=== PATIENT | female | born 1940 | race Hispanic/Latino ===

== ENCOUNTER 2018-03-16 15:27 | Emergency (ER) | payer MEDICARE ==
[2018-03-16 15:36] VITALS: RESP 16; TEMP 98.1
[2018-03-16] MEDS ORDERED: Lidocaine 5% Patch TD ONE (16:19)
[2018-03-16] MEDS: Lidocaine 5% Patch TD STA (16:26)
--- NOTE | 2018-03-16 16:56 | CT ---
Date of service: 03/16/2018 PROCEDURE: CT Lumbar Spine without contrast HISTORY: back pain, s/p fall, s/p kyphoplasty COMPARISON: None available. TECHNIQUE: Axial computed tomography images were obtained of the lumbar spine without the use of intravenous contrast. Coronal and sagittal reformatted images were created and reviewed. Radiation dose: Total exam DLP = 060.27 mGy-cm. This CT exam was performed using one or more of the following dose reduction techniques: Automated exposure control, adjustment of the mA and/or kV according to patient size, and/or use of iterative reconstruction technique. FINDINGS: VERTEBRAE: No visible fractures. Scoliosis, secondary degenerative change at multiple levels. DISCS/SPINAL CANAL/NEURAL FORAMINA: L1-2: Disc space narrowing with vacuum disc phenomenon. L2-3: Disc space narrowing with vacuum disc phenomenon. L3-4: Disc space narrowing with vacuum disc phenomenon. L4-5: Disc space narrowing with vacuum disc phenomenon. L5-S1: Disc space narrowing with vacuum disc phenomenon. PARASPINAL SOFT TISSUES: Unremarkable. OTHER FINDINGS: None. IMPRESSION: No acute findings related to/accounting for the clinical presentation. Scoliosis, multilevel degenerative changes primarily disc space narrowing, vacuum disc phenomenon. No evidence of canal stenosis.
--- NOTE | 2018-03-16 16:59 | ED PDOC ---
HPI: Back Time Seen by Provider: 03/16/18 15:41 Chief Complaint (Nursing): Back Pain History Per: Patient, Family (daughter) Additional Complaint(s): Pt. states yesterday she fell backward landing in a sitting position. States pain progressively got worse today prompting ED visit. Also states on 12/21/2017 she had a kyphoplasty done on T9 in [place] by Dr. Dukes. Pt. states pain has begun to radiate to the front of her thighs. Denies urinary/stool incontinence, hematuria, dysuria, abd pain, weakness, head injury, other injury. Past Medical History Reviewed: Historical Data, Nursing Documentation, Vital Signs Vital Signs: Last Vital Signs Temp 98.1 F 03/16/18 15:36 Pulse 96 H 03/16/18 15:36 Resp 16 03/16/18 15:36 BP 167/71 H 03/16/18 15:36 Pulse Ox 98 03/16/18 15:36 - Medical History Other PMH: Lynn's disease - Family History Family History: States: No Known Family Hx - Home Medications Home Medications: Ambulatory Orders Medication Instructions Recorded Cyclobenzaprine [Cyclobenzaprine 10 mg PO Q8 PRN #10 tab 03/16/18 HCl] Lidocaine 5% [Lidoderm] 1 ea TD DAILY PRN #10 patch 03/16/18 - Allergies Allergies/Adverse Reactions: Allergies Allergy/AdvReac Type Severity Reaction Status Date / Time Iodinated Contrast- Oral and Allergy ANAPHYLAXIS Verified 03/16/18 15:36 IV Dye chlorpromazine AdvReac ANAPHYLAXIS Verified 03/16/18 15:36 [From Thorazine] Review of Systems ROS Statement: Except As Marked, All Systems Reviewed And Found Negative Musculoskeletal: Positive for: Back Pain Physical Exam - Physical Exam Appears: Positive for: Well, Non-toxic, No Acute Distress Skin: Positive for: Normal Color, Warm. Negative for: Rash Eye Exam: Positive for: Normal appearance Cardiovascular/Chest: Positive for: Regular Rate, Rhythm, Chest Non Tender Respiratory: Positive for: Normal Breath Sounds. Negative for: Respiratory Distress Gastrointestinal/Abdominal: Positive for: Normal Exam, Soft. Negative for: Tenderness Back: Positive for: Normal Inspection, Muscle Spasm (mild paralumbar tenderness) , Other (no tenderness to back). Negative for: L CVA Tenderness, R CVA Tenderness, Vertebral Tenderness, Decreased ROM Neurologic/Psych: Positive for: Alert, Oriented (x3), Gait (steady, unassisted) . Negative for: Aphasia, Facial Droop - ECG O2 Sat by Pulse Oximetry: 98 - Progress ED Course And Treament: CT LS spine w/o contrast:No acute findings related to/accounting for the clinical presentation. Scoliosis, multilevel degenerative changes primarily disc space narrowing, vacuum disc phenomenon. No evidence of canal stenosis. Lidoderm patch placed. Advised to f/u with Dr. Dukes. States she is going back to [place] on Tuesday. Disposition - Clinical Impression Clinical Impression: Back pain - Patient ED Disposition Is Patient to be Admitted: No - Disposition Referrals: [facility] [Outside] [facility] [Outside] Disposition: Routine/Home Disposition Time: 16:57 Condition: IMPROVED Additional Instructions: VARSHA KNOTT, thank you for letting us take care of you today. Your provider was Ella Lindsay MD and you were treated for POSS BACK PAIN, B/ L LEG PAIN. The emergency medical care you received today was directed at your acute symptoms. If you were prescribed any medication, please fill it and take as directed. It may take several days for your symptoms to resolve. Return to the Emergency Department if your symptoms worsen, do not improve, or if you have any other problems. Please contact your doctor or call one of the physicians/clinics you have been referred to that are listed on the Patient Visit Information form that is included in your discharge packet. Bring any paperwork you were given at discharge with you along with any medications you are taking to your follow up visit. Our treatment cannot replace ongoing medical care by a primary care provider outside of the emergency department. Thank you for allowing the [facility] team to be part of your care today. If you had an X-Ray or CT scan: A Radiologist will review the ED reading if any change in treatment is needed we will contact you. If you had a blood, urine, or wound culture: It will take several days for the results, if any change in treatment is needed we will contact you. If you had an STI test: It will take 48 hours for the results. Please call after 1 week if you have not heard back. Prescriptions: Cyclobenzaprine [Cyclobenzaprine HCl] 10 mg PO Q8 PRN #10 tab PRN Reason: Muscle Spasm Lidocaine 5% [Lidoderm] 1 ea TD DAILY PRN #10 patch PRN Reason: pain Instructions: Low Back Pain (DC) Forms: [employer] (Armenian) Print Language: YAKUT
[2018-03-16 17:18] VITALS: BP 139/72; PULSE 87
[2018-03-16 17:19] VITALS: O2SAT 98
== END 2018-03-16 17:10 | disposition home or self-care (01) ==
LOC: H.ER 15:27
DX: M54.9 Dorsalgia, unspecified (principal)